=== PATIENT | male | born 1935 | race Caucasian/White ===

== ENCOUNTER 2022-10-24 13:21 | Emergency (ER) | payer MEDICARE, OTHER ==
[~2022-10-24] VITALS: Ht 175.3 cm; Wt 75.0 kg
[2022-10-24] MEDS ORDERED: TAMS-13 PO (13:41)
[2022-10-24] MEDS ORDERED: LEVO88TA PO (13:41)
[2022-10-24] MEDS ORDERED: FOLI-130 PO (13:41)
[2022-10-24] MEDS ORDERED: HYDR25TA2 PO (13:41)
[2022-10-24] MEDS ORDERED: SIMV-260 PO (13:41)
[2022-10-24] MEDS ORDERED: METH2.5T6 PO (13:41)
[2022-10-24 13:48] LABS: COVID AG,FIA SOURCE NASAL SWAB
[2022-10-24 14:09] LABS: INFLUENZA TYPE A NEGATIVE FOR TYPE A (NEGATIVE); INFLUENZA TYPE B NEGATIVE FOR TYPE B (NEGATIVE)
[2022-10-24] MEDS ORDERED: SERT-440 PO (15:42)
[2022-10-24] MEDS ORDERED: GABA-529 PO (15:42)
[2022-10-24] MEDS ORDERED: PANT40TA54 PO (15:42)
[2022-10-24] MEDS ORDERED: ALBUTEROL SULFATE 2.5 MG/0.5 ML NEB SOLUTION NEB ONE (15:45)
[2022-10-24] MEDS ORDERED: PredniSONE 20 MG TABLET PO ONE (15:45)
[2022-10-24 17:21] VITALS: BP 136/77
== END 2022-10-24 17:52 | disposition home or self-care (01) ==
LOC: EMS 13:21
DX: J44.9 Chronic obstructive pulmonary disease, unspecified (principal); J06.9 Acute upper respiratory infection, unspecified; E78.00 Pure hypercholesterolemia, unspecified; I10 Essential (primary) hypertension; Z90.49 Acquired absence of other specified parts of digestive tract; Z98.890 Other specified postprocedural states; Z88.0 Allergy status to penicillin; Z20.822 Contact with and (suspected) exposure to COVID-19
CPT/HCPCS: 99284; 71046; 87426; 87804; 94640; J7512; J7613